=== PATIENT | female | born 1980 | race Caucasian/White ===

== ENCOUNTER 2019-04-24 16:26 | Emergency (ER) | payer OTHER, MEDICAID ==
[~2019-04-24] VITALS: Ht 165.1 cm; Wt 75.3 kg
[2019-04-24] MEDS ORDERED: ALKA-SELTZER P1 EAC9 PO (17:47)
[2019-04-24] MEDS ORDERED: PREDNISONE20 M1 PO (19:49)
[2019-04-24] MEDS ORDERED: PROVENTIL HFA6.7 GM INH (19:49)
[2019-04-24] MEDS ORDERED: TESSALON PERLE100 M1 PO (19:49)
[2019-04-24] MEDS ORDERED: DOXYCYCLINE100 M3 PO (19:49)
== END 2019-04-24 19:46 | disposition home or self-care (01) ==
LOC: ED 16:26
DX: J40 Bronchitis, not specified as acute or chronic (principal); F17.200 Nicotine dependence, unspecified, uncomplicated; Z79.899 Other long term (current) drug therapy

== ENCOUNTER 2019-12-02 15:35 | Emergency (ER) | payer OTHER ==
[~2019-12-02] VITALS: Wt 90.7 kg
[~2019-12-02 15:35] MED LIST: ALKA-SELTZER P1 EAC9 PO; DOXYCYCLINE100 M3 PO; PREDNISONE20 M1 PO; PROVENTIL HFA6.7 GM INH; TESSALON PERLE100 M1 PO
[2019-12-02] MEDS ORDERED: AUGMENTIN 875-875 MG PO (17:30)
[2019-12-02] MEDS ORDERED: ROBITUSSIN DM 101 OZ PO (17:30)
== END 2019-12-02 17:31 | disposition home or self-care (01) ==
LOC: ED 15:35
DX: J01.90 Acute sinusitis, unspecified (principal); Z79.899 Other long term (current) drug therapy

== ENCOUNTER 2020-08-07 05:42 | Inpatient (IN) | payer OTHER ==
[~2020-08-07] VITALS: Ht 165.1 cm; Wt 74.8 kg
[~2020-08-07 05:42] MED LIST changes: +AUGMENTIN 875-875 MG PO; +ROBITUSSIN DM 101 OZ PO
[2020-08-07 05:59] VITALS: BP 165/93
[2020-08-07 06:20] LABS: HEMATOCRIT 39.5 % (37.0-47.0); MEAN PLATELET VOLUME 9.7 fl (9.6-12.3); PLATELET COUNT AUTOMATED 237 10*3/uL (130-400); RED CELL DISTRI WIDTH 11.9 % (0-14.5)
[2020-08-07 06:34] LABS: CREATININE 1.28 mg/dL (0.55-1.02); POTASSIUM 3.4 mmol/L (3.5-5.1)
[2020-08-07 06:53] LABS: ALBUMIN 3.1 gm/dl (3.1-4.5); TOTAL PROTEIN 7.3 gm/dL (6.4-8.2)
[2020-08-07 06:55] LABS: MEAN CORPUSCULAR HGB 32.6 pg (27.0-31.0); MEAN CORPUSCULAR HGB CONC 34.7 g/dl (33.0-37.0)
[2020-08-07 07:09] LABS: PLATELET SUFFICIENCY NORMAL (NORMAL); TOTAL CELLS COUNTED 100 #CELLS
[2020-08-07 07:25] VITALS: BP 165/93
[2020-08-07 09:56] VITALS: BP 141/78
[2020-08-07 10:39] VITALS: BP 122/63
[2020-08-07] MEDS ORDERED: MULTIPLE VITAM1 EAC1 PO (10:44)
[2020-08-07] MEDS ORDERED: SUBOXONE 8 MG-1 EACH PO (10:44)
[2020-08-07 13:45] LABS: BUN 12 mg/dl (7-24); CHLORIDE 103 mmol/L (98-107); CREATININE 0.75 mg/dL (0.55-1.02); SODIUM 132 mmol/L (136-145)
[2020-08-07 13:47] LABS: POTASSIUM 4.1 mmol/L (3.5-5.1)
[2020-08-07 15:11] LABS: ALBUMIN 3.2 gm/dl (3.1-4.5); ALKALINE PHOSPHATASE 127 U/L (45-117); BUN 19 mg/dl (7-24); CHLORIDE 108 mmol/L (98-107); CREATININE 0.98 mg/dL (0.55-1.02); POTASSIUM 3.8 mmol/L (3.5-5.1); SODIUM 138 mmol/L (136-145); TOTAL PROTEIN 7.6 gm/dL (6.4-8.2)
[2020-08-07 15:25] LABS: SGOT/AST 38 IU/L (3-35)
[2020-08-07 15:31] LABS: SGPT/ALT 61 U/L (12-78)
[2020-08-07 16:00] VITALS: BP 124/66
[2020-08-07 20:00] VITALS: BP 126/82
[2020-08-08 01:30] VITALS: BP 110/70
[2020-08-08 06:24] LABS: HEMATOCRIT 45.3 % (37.0-47.0); MEAN CELL VOLUME 93.6 fl (81.0-99.0); PLATELET COUNT AUTOMATED 209 10*3/uL (130-400); RED BLOOD COUNT 4.84 10*6/uL (4.10-5.10); RED CELL DISTRI WIDTH 12.2 % (0-14.5)
[2020-08-08 07:17] LABS: MEAN CORPUSCULAR HGB CONC 34.2 g/dl (33.0-37.0)
[2020-08-08 07:18] LABS: TRIGLYCERIDES 3507 mg/dl (<150); WHITE BLOOD COUNT 9.6 10*3/uL (4.8-10.8)
[2020-08-08 07:31] LABS: ALBUMIN 2.3 gm/dl (3.1-4.5); ALKALINE PHOSPHATASE 80 U/L (45-117); CHLORIDE 105 mmol/L (98-107); CREATININE 0.81 mg/dL (0.55-1.02); FREE T4 0.87 ng/dl (0.76-1.46); POTASSIUM 4.3 mmol/L (3.5-5.1); SGOT/AST 41 IU/L (3-35); SODIUM 135 mmol/L (136-145); TOTAL PROTEIN 6.7 gm/dL (6.4-8.2)
[2020-08-08 07:36] LABS: THYROID STIM HORMONE (HS) 0.635 uIU/ml (0.358-4.75)
[2020-08-08 07:37] LABS: PLATELET SUFFICIENCY NORMAL (NORMAL); TOTAL CELLS COUNTED 100 #CELLS
[2020-08-08 07:38] LABS: BUN 9 mg/dl (7-24)
[2020-08-08 08:00] VITALS: BP 102/65
[2020-08-08 08:05] LABS: SGPT/ALT 15 U/L (12-78)
[2020-08-08 08:13] LABS: CHOLESTEROL 380 mg/dL (<200)
[2020-08-08 09:30] LABS: ACT PARTIAL THROMBO TIME 29.4 SECONDS (20.0-32.1)
[2020-08-08 09:41] LABS: VITAMIN D, 25-HYDROXY 6.8 ng/mL (30-100)
[2020-08-08 12:00] VITALS: BP 98/71
[2020-08-08 16:00] VITALS: BP 109/65
[2020-08-08 20:00] VITALS: BP 120/86
[2020-08-09] VITALS: BP 104/64
[2020-08-09 04:00] VITALS: BP 111/72
[2020-08-09 05:45] LABS: ALBUMIN 1.9 gm/dl (3.1-4.5); BUN 8 mg/dl (7-24); CHLORIDE 104 mmol/L (98-107); CHOLESTEROL 310 mg/dL (<200); CREATININE 0.76 mg/dL (0.55-1.02); LIPASE 581 U/L (73-393); POTASSIUM 3.4 mmol/L (3.5-5.1); SODIUM 133 mmol/L (136-145); TOTAL PROTEIN 6.1 gm/dL (6.4-8.2)
[2020-08-09 05:52] LABS: ALKALINE PHOSPHATASE 69 U/L (45-117)
[2020-08-09 05:55] LABS: TRIGLYCERIDES 1759 mg/dl (<150)
[2020-08-09 05:59] LABS: LDH 620 U/L (84-246)
[2020-08-09 06:09] LABS: HEMATOCRIT 37.7 % (37.0-47.0); MEAN CELL VOLUME 94.5 fl (81.0-99.0); MEAN CORPUSCULAR HGB 33.3 pg (27.0-31.0); MEAN CORPUSCULAR HGB CONC 35.3 g/dl (33.0-37.0); PLATELET COUNT AUTOMATED 186 10*3/uL (130-400); RED BLOOD COUNT 3.99 10*6/uL (4.10-5.10); RED CELL DISTRI WIDTH 12.7 % (0-14.5); WHITE BLOOD COUNT 10.3 10*3/uL (4.8-10.8)
[2020-08-09 06:53] LABS: BASOPHILS 1 % (0-1); PLATELET SUFFICIENCY NORMAL (NORMAL); POLYCHROMASIA SLIGHT; SGOT/AST 25 IU/L (3-35); SGPT/ALT 12 U/L (12-78); TOTAL CELLS COUNTED 100 #CELLS; TOXIC GRANULATION SLIGHT; VACUOLATION OF NEUTROPHILS SLIGHT
[2020-08-09 08:01] VITALS: BP 109/80
[2020-08-09 11:56] VITALS: BP 106/79
== END 2020-08-09 15:20 | disposition short-term general hospital (02) | DRG 438 ==
LOC: ED 05:42 → EDHOLD 09:42 → 5E 09:42 → ICCU 08-08 19:02
PROVIDERS: Internal Medicine; ADMIT Internal Medicine; ATTEND Internal Medicine
DX: K85.20 Alcohol induced acute pancreatitis without necrosis or infection (principal); E43 Unspecified severe protein-calorie malnutrition; E87.1 Hypo-osmolality and hyponatremia; F17.210 Nicotine dependence, cigarettes, uncomplicated; D72.829 Elevated white blood cell count, unspecified; R00.1 Bradycardia, unspecified; E87.6 Hypokalemia; E87.8 Other disorders of electrolyte and fluid balance, not elsewhere classified; R73.9 Hyperglycemia, unspecified; R74.8 Abnormal levels of other serum enzymes; E83.51 Hypocalcemia; E83.39 Other disorders of phosphorus metabolism; E53.8 Deficiency of other specified B group vitamins; E78.1 Pure hyperglyceridemia; E78.00 Pure hypercholesterolemia, unspecified; Z79.899 Other long term (current) drug therapy; Z71.6 Tobacco abuse counseling; Z68.27 Body mass index [BMI] 27.0-27.9, adult

== ENCOUNTER 2021-09-13 21:14 | Emergency (ER) | payer OTHER ==
[~2021-09-13] VITALS: Ht 165.1 cm; Wt 54.4 kg
[~2021-09-13 21:14] MED LIST changes: +MULTIPLE VITAM1 EAC1 PO; +SUBOXONE 8 MG-1 EACH PO
== END 2021-09-13 22:27 | disposition home or self-care (01) ==
LOC: ED 21:14
DX: S60.862A Insect bite (nonvenomous) of left wrist, initial encounter (principal); Z79.899 Other long term (current) drug therapy; W57.XXXA Bitten or stung by nonvenomous insect and other nonvenomous arthropods, initial encounter; Y93.89 Activity, other specified; Y92.89 Other specified places as the place of occurrence of the external cause; Y99.8 Other external cause status